=== PATIENT | female | born 1990 | race Caucasian/White ===

== ENCOUNTER 2018-09-05 08:17 | Emergency (ER) | payer OTHER ==
[2018-09-05] MEDS ORDERED: Sodium Chloride 0.9% 10 ML Syringe FLUSH PRN (08:47)
[2018-09-05] MEDS ORDERED: Ondansetron 4 MG/2 ML SDV IVPUSH ONE (08:57)
[2018-09-05] MEDS ORDERED: Sodium Chloride 0.9% 1,000 ML IV SCH (09:00)
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
[2018-09-05] MEDS ORDERED: cefTRIAXone 1 GM in Sodium Chloride 0.9% 100 ML IV SCH (10:15)
== END 2018-09-05 11:00 | disposition home or self-care (01) ==
LOC: JD.ED 08:17
DX: N30.00 Acute cystitis without hematuria (principal); I10 Essential (primary) hypertension; F17.210 Nicotine dependence, cigarettes, uncomplicated; E11.9 Type 2 diabetes mellitus without complications; E03.9 Hypothyroidism, unspecified; Z88.2 Allergy status to sulfonamides; Z79.899 Other long term (current) drug therapy
CPT/HCPCS: 36415; 80053; 81001; 85025; 87804; 96361; 96365; 96375; 99283; J0696; J2405; J7030; J7040